=== PATIENT | male | born 1965 | race Caucasian/White ===

== ENCOUNTER 2024-06-16 12:59 | Observation (INO) | payer SELFPAY ==
[2024-06-16] VITALS (8 sets, daily range): BP systolic 97–125; BP diastolic 53–86; PULSE 65–80; RESP 16–19; TEMP 36.8–37; O2SAT 96–100; BMI 21.1
[2024-06-16 13:31] LABS: Basophils % 0.1 %; Hematocrit 39.9 % (37-53); Lymphocytes # 0.6 10^3/uL (0.8-4.8); Lymphocytes % 4.3 %; Mean Corpuscular HGB Conc 33.6 g/dL (30-55); Mean Corpuscular Volume 89.5 fl (82-101); Mean Platelet Volume 10.1 fL (7.4-10.4); Monocytes # 0.8 10^3/uL (0.2-0.9); Monocytes % 5.3 %; Neutrophils % 90.1 %; Nucleated Red Blood Cells % 0 %; Platelet Count 178 10^3/cmm (157-399); Red Blood Count 4.46 10^6/uL (3.85-5.65); White Blood Count 14.22 10^3/uL (3.29-11.43)
--- NOTE | 2024-06-16 13:48 | CTR_ITS ---
PROCEDURE INFORMATION: Exam: CT Abdomen And Pelvis With Contrast Exam date and time: 06/16/2024 2:58 PM Age: 59 years old Clinical indication: Abdominal pain; Additional info: Abd pain TECHNIQUE: Imaging protocol: Computed tomography of the abdomen and pelvis with contrast. Radiation optimization: All CT scans at this facility use at least one of these dose optimization techniques: automated exposure control; mA and/or kV adjustment per patient size (includes targeted exams where dose is matched to clinical indication); or iterative reconstruction. Contrast material: OMNI 350; Contrast volume: 100 ml; Contrast route: INTRAVENOUS (IV); COMPARISON: No relevant prior studies available. RADIATION DOSE METRICS: Total DLP (mGy-cm): 336.76 FINDINGS: Liver: Normal. No mass. Gallbladder and biliary ducts: See Urinary bladder finding. Pancreas: Normal. No ductal dilation. Spleen: Normal. No splenomegaly. Adrenal glands: Normal. No mass. Kidneys and ureters: Normal. No hydronephrosis. Stomach and bowel: Unremarkable. No obstruction. No mucosal thickening. Calcifications medial to the gallbladder are probably within the descending limb of the duodenum. Appendix: No evidence of appendicitis. Intraperitoneal space: Unremarkable. No free air. No significant fluid collection. Vasculature: Unremarkable. No abdominal aortic aneurysm. Lymph nodes: Unremarkable. No enlarged lymph nodes. Urinary bladder: Thickened urinary bladder wall with trabeculations suggesting chronic outlet obstruction. Reproductive: Unremarkable as visualized. Bones/joints: Unremarkable. No acute fracture. Soft tissues: Unremarkable. CT/CT abdomen pelvis w con* [id number] IMPRESSION: Likely chronic bladder outlet obstruction.
[2024-06-16 13:53] LABS: Alanine Aminotransferase 23 U/L (0-41); Albumin Level 4.1 g/dL (3.5-5.2); Alkaline Phosphatase 87 U/L (40-130); Anion Gap 15.4 (5-19); Aspartate Amino Transferase 30 U/L (0-40); Blood Urea Nitrogen 15 mg/dL (8-23); Calcium 9.4 mg/dL (8.5-10.5); Carbon Dioxide 24 mmol/L (22-29); Chloride 97 mmol/L (98-107); Creatinine Clr Calc Pharmacy 100.5588; Globulin 2.9 g/dL (1.3-4.6); Glomerular Filtration Rate 114.6 mL/min (90-130); Glucose 127 mg/dL (65-115); Lipase 20 U/L (13-60); Osmolality Calculated 276 mOsm/kg (285-295); Potassium 4.4 mmol/L (3.5-5.1); Sodium 132 mmol/L (136-145)
--- NOTE | 2024-06-16 14:10 | ED_ITS ---
HPI - Abdominal Pain 2 General: Chief Complaint: Abdominal Pain Stated Complaint: abdominal pain right side Time Seen by Provider: 06/16/24 13:47 Source: patient Mode of arrival: ambulatory Limitations: no limitations History of Present Illness: 59-year-old male states been having abdo eric pain since last night states it is worsened today's in his right lower quadrant rates his pain 8 out of 10 worse with movement he states he had some nausea and vomiting as well denies any dysuria denies any fever denies any diarrhea. Associated Symptoms: Reports nausea and vomiting; Denies chills, diarrhea, dysuria and fever(s) Related Data Home Medications Medication Instructions Recorded Confirmed No Known Home Medications 06/16/24 06/16/24 Allergies Allergy/AdvReac Type Severity Reaction Status Date / Time No Known Allergies Allergy Verified 06/16/24 13:21 Review of Systems 2 Const: Denies: fever(s), chills, body aches or change in appetite ENMT: Denies: throat pain or dental pain Card: Denies: chest pain Resp: Denies: dyspnea GI: Reports: abdominal pain, nausea and vomiting; Denies: diarrhea : Denies: dysuria Musc: Denies: neck pain or back pain Skin/Breast: Denies: rash Neuro: Denies: headache(s) Physical Exam 2 Const: COMMON NORMALS: no acute distress, patient oriented x3 and healthy appearing HENMT: COMMON NORMALS: normocephalic and atraumatic HEAD & SCALP: n ormocephalic and atraumatic Neck/C-Spine: COMMON NORMALS: full ROM and supple Chest: COMMONS NORMALS: normal inspection of the chest Resp: COMMON NORMALS: normal respiratory effort Cardio: COMMON NORMALS: regular rate RATE: regular rate GI: COMMON NORMALS: Normal to inspection, nondistended, normoactive bowel sounds present, Soft to palpation and no masses PALPATION: Yes Soft to palpation and Yes Tenderness to palpation present (GI) Details: RLQ Extremity: COMMON NORMALS: normal to inspection and full ROM Neuro: COMMON NORMALS: patient oriented x3, moves all extremities and no focal motor deficits Psych: COMMON NORMALS: mental status grossly normal, Normal thought process present and cooperative THOUGHT PROCESS: Normal thought process present Skin: COMMON NORMALS: no rashes or lesions noted and no wounds GENERAL SKIN EXAM: no rashes or lesions noted Course 2 Vital Signs: Vital signs: Vital Signs Temperature 98.2 F 06/16/24 13:22 Pulse Rate 80 06/16/24 15:30 Respiratory Rate 17 06/16/24 15:00 Blood Pressure 113/65 06/16/24 15:30 Pulse Oximetry 99 06/16/24 15:30 Oxygen Delivery Me thod Room Air 06/16/24 15:30 MDM - Abdominal Pain Medical Decision Making Patient presents with right lower quadrant pain CT shows likely appendicitis I spoke to his surgeon on-call will admit on IV antibiotics at this time. Medical Records I reviewed the patient's medical records. Lab Data I reviewed the patient's lab results. 06/16/24 13:18 06/16/24 13:18 Labs/Radiology: Radiology Impressions Abdomen/Pelvis CT 06/16/24 13:48 IMPRESSION: Likely chronic bladder outlet obstruction. Laboratory Results WBC 14.22 10^3/uL (3.29-11.43) H 06/16/24 13:18 RBC 4.46 10^6/uL (3.85-5.65) 06/16/24 13:18 Hgb 13.40 g/dL (11.27-16.99) 06/16/24 13:18 Hct 39.9 % (37-53) 06/16/24 13:18 MCV 89.5 fl (82-101) 06/16/24 13:18 MCH 30.0 pg (27-33) 06/16/24 13:18 MCHC 33.6 g/dL (30-55) 06/16/24 13:18 RDW 13.0 % (12.1-15.1) 06/16/24 13:18 Plt Count 178 10^3/cmm (157-399) 06/16/24 13:18 MPV 10.1 fL (7.4-10.4) 06/16/24 13:18 Neut % (Auto) 90.1 % 06/16/24 13:18 Lymph % (Auto) 4.3 % 06/16/24 13:18 [place] % (Auto) 5.3 % 06/16/24 13:18 Eos % (Auto) 0.0 % 06/16/24 13:18 Baso % (Auto) 0.1 % 06/16/24 13:18 Neut # (Auto) 12.80 10^3/uL (1.8-7.7) H 06/16/24 13:18 Lymph # (Auto) 0.6 10^3/uL (0.8-4.8) L 06/16/24 13:18 [place] # (Auto) 0.8 10^3/uL (0.2-0.9) 06/16/24 13:18 Eos # (Auto) 0.0 10^3/uL (0.0-0.8) 06/16/24 13:18 Baso # (Auto) 0.0 10^3/uL (0.0-0.1) 06/16/24 13:18 Nucleated RBC % (auto) 0 % 06/16/24 13:18 Nucleated RBCs # 0.0 /100WBC 06/16/24 13:18 Sodium 132 mmol/L (136-145) L 06/16/24 13:18 Potassium 4.4 mmol/L (3.5-5.1) 06/16/24 13:18 Chloride 97 mmol/L (98-107) L 06/16/24 13:18 Carbon Dioxide 24 mmol/L (22-29) 06/16/24 13:18 Anion Gap 15.4 (5-19) 06/16/24 13:18 BUN 15 mg/dL (8-23) 06/16/24 13:18 Creatinine 0.7 mg/dL (0.7-1.2) 06/16/24 13:18 GFR Calculation 114.6 mL/min (90-130) 06/16/24 13:18 Glucose 127 mg/dL (65-115) H 06/16/24 13:18 Calculated Osmolality 276 mOsm/kg (285-295) L 06/16/24 13:18 Lactic Acid 1.6 mmol/L (0.5-2.2) 06/16/24 13:18 Calcium 9.4 mg/dL (8.5-10.5) 06/16/24 13:18 Total Bilirubin 1.0 mg/dL (0.15-1.2) 06/16/24 13:18 AST 30 U/L (0-40) 06/16/24 13:18 ALT 23 U/L (0-41) 06/16/24 13:18 Alkaline Phosphatase 87 U/L (40-130) 06/16/24 13:18 Total Protein 7.0 g/dL (6.6-8.7) 06/16/24 13:18 Albumin 4.1 g/dL (3.5-5.2) 06/16/24 13:18 Globulin 2.9 g/dL (1.3-4.6) 06/16/24 13:18 Lipase 20 U/L (13-60) 06/16/24 13:18 Urine Color Yellow (Yellow) 06/16/24 14:00 Urine Appearance Cloudy (CLEAR) A 06/16/24 14:00 Urine pH 5.5 (5-7) 06/16/24 14:00 Ur Specific [place] 1.035 (1.005-1.030) H 06/16/24 14:00 Urine Protein 1+ (Negative) A 06/16/24 14:00 Urine Glucose (UA) Negative (Normal) 06/16/24 14:00 Urine Ketones 1+ (Negative) H 06/16/24 14:00 Urine Blood Negative (Negative) 06/16/24 14:00 Urine Nitrate Negative (Negative) 06/16/24 14:00 Urine Bilirubin Negative (Negative) 06/16/24 14:00 Urine Urobilinogen 1.0 mg/dL (Negative) 06/16/24 14:00 Ur Leukocyte Esterase Negative (Negative) 06/16/24 14:00 Urine RBC 0-2 /hpf (0-2) 06/16/24 14:00 Urine WBC 11-20 /hpf (0-5) H 06/16/24 14:00 Ur Squamous Epith Cells 0-5 /hpf (0-5) 06/16/24 14:00 Amorphous Sediment Not Reportable 06/16/24 14:00 Urine Bacteria None seen /hpf (NONE) 06/16/24 14:00 Hyaline Casts 3.71 /lpf 06/16/24 14:00 Urine Mucus 2+ /hpf 06/16/24 14:00 Urine Sperm 4+ /hpf 06/16/24 14:00 All radiology interpretation(s) finalized by discharge Discharge Plan Discharge Patient Disposition: Admitted As Inpatient Clinical Impression: Acute appendicitis Condition: Stable Prescriptions: No Action No Known Home Medications Patient Instructions: Appendicitis (GEN) Coding Level of Care Code ED Auto Customize Painter for Lindsay Thayer
[2024-06-16 14:33] LABS: Bilirubin Urine Negative (Negative); Blood Urine Negative (Negative); Glucose Urine UA Negative (Normal); Ketones Urine 1+ (Negative); Leukocyte Esterase Urine Negative (Negative); Nitrate Urine Negative (Negative); Protein Urine 1+ (Negative); Urine Appearance Cloudy (CLEAR); Urine Color Yellow (Yellow); pH Urine 5.5 (5-7)
[2024-06-16 14:35] LABS: Add Urine Microscopic? YES; Bacteria Urine None Seen /hpf; Hyaline Casts Urine 3.71 /lpf; RBC Urine 0-2 /hpf (0-2); Squamous Epithelial Cell Urine 0-5 /hpf (0-5)
[2024-06-16 14:47] LABS: Specific Gravity, Urine 1.035 (1.005-1.030); UA Slide Review UA Slide Review Perf
[2024-06-16 14:48] LABS: Sperm Urine 4+ /hpf
[2024-06-16 14:49] LABS: Mucus Urine 2+ /hpf
[2024-06-16] MEDS: iohexol 350 mg/mL 500 mL Btl (per mL) IV (15:00)
--- NOTE | 2024-06-16 15:12 | PC.NURSE ---
pt refused meds at this time, Dr. Leal aware.
[2024-06-16 15:44] LABS: Lactic Sepsis W/Reflex 1.6 mmol/L (0.5-2.2)
[2024-06-16] MEDS: piperacillin-tazobactam 3.375 GM in sodium chloride 0.9% (plus) 50 ML IV ×2 (16:06→23:57)
[2024-06-17] VITALS (15 sets, daily range): BP systolic 91–109; BP diastolic 43–66; PULSE 60–82; RESP 12–18; TEMP 36.6–37.7; O2SAT 96–100
[2024-06-17] MEDS: piperacillin-tazobactam 3.375 GM in sodium chloride 0.9% (plus) 50 ML IV ×2 (08:25→22:23)
--- NOTE | 2024-06-17 09:29 | PC.CHAP ---
Pastoral Care Encounter/Spiritual Assessment Type of Contact [] Declined beam doffer visit [] Patient/Family/Request visit [] Outpatient visit [] Follow-up visit [] Physician referral [] Code/Alert [x] Routine visit [] Staff referral [] Actively dying [] Patient sleeping [] Family support [] [] Out of room [] Palliative care [] [] Receiving care in room [] Pre-surgical visit [] Trauma [] Long length of stay [] ICU visit [] Other: Relational/Emotional Strength [x] Patient feels connected with others/family/visitors/staff [] Distress [] Loneliness/isolation [] Abandonment Spirituality of Patient [x] Person of Carrie [] Attends Moravian of their Carrie [x] Believes in Prayer [] Reads Bible or Anglican materials [] There are Spiritual issues to be addressed Product Safety Expert Interventions [x] Prayer [x] Active listening [] Non-anxious presence [x] Spiritual/emotional support [] Crisis/trauma care [] Spiritual counseling [] Bereavement support [] Provided bereavement packet [] Provided Bible/devotional materials [] Provided toy/stuffed animal, coloring book to patient or family member [] Provided Communion [] Anointing/[place] [] Salvation [x] Completed spiritual assessment [] Other: Impact on Illness or Injury [] Angry [] Fearful [] Anxious [] Often cries [] Exhaustion [] Unable to work [] Unable to attend pentecostalism [] Unable to walk/stand [] Unable to read [] Unable to drive [] Unable to eat/drink [] Unable to sleep [] Unable to be with family [] Patient intubated [] Other: Summary Time spent with patient 5 min
--- NOTE | 2024-06-17 16:54 | P.HP_ITS ---
Providers/Chief Complaint 2 Admitting Physician: Yahir Erickson DO Chief Complaint: abdominal pain right side History of Present Illness David Blanchard is a 59 year old male who presented to hospital with 1 day history of right lower quadrant abdominal pain. Palpation and movement make the pain worse. Not seems to make the pain better. The pain radiates to his back. He denies any nausea, emesis, diarrhea, constipation, hematochezia and/or melena. CT of the abdomen pelvis shows acute appendicitis and chronic bladder outlet obstruction Review of Systems 2 General: Reports: 10 or more systems reviewed and unremarkable except in HPI and below Medications/Allergies Home Medications Medication Instructions Recorded Confirmed Last Taken Type No Known Home Medications 06/16/24 06/16/24 Unknown History Allergies Allergy/AdvReac Type Severity Reaction Status Date / Time No Known Allergies Allergy Verified 06/16/24 13:21 Vitals/I&O/Wt Last Vital Signs Temp 99.6 F 06/17/24 16:49 Pulse 67 06/17/24 16:49 Resp 17 06/17/24 16:49 BP 96/53 06/17/24 16:49 Pulse Ox 96 06/17/24 16:49 O2 Del Method Room Air 06/17/24 16:49 06/17/24 06/17/24 06/17/24 06:59 14:59 22:59 Intake Total 750 / 1040 50 / 50 Output Total 2000 / 3400 400 / 400 Balance -1250 / -2360 -350 / -350 Weight last 48 hrs Weight 135 lb Weight 135 lb Physical Exam 2 Narrative: General : Patient is well developed , no acute distress, oriented x3 Head : Normal cephalic, a-traumatic. Ears : Pinnae and external canal are normal. Hearing is normal. Eyes : PERRLA, Sclera and injection are normal. No conjunctival discharge. Nose : Mucous membranes are without erythema. Throat : buccal mucosa is normal, gums are without significant recession or hypertrophy. Lungs : Equal chest rise bilaterally, no use of accessory muscles, trachea is midline. Cor : Rate and rhythm are normal. Abdomen : Soft, ND, tender right lower quadrant, negative Rovsing's, no g/r/m Extremities : No edema, no cyanosis or clubbing, dorsalis pedis pulses are present bilaterally, non-tender to palpation of calves. Upper extremities are normal bilaterally. Back : non-tender to palpation, no CVA tenderness. Neuro : CN II - XII intact, Upper and lower extremities have equal and full strength Urinary Catheter Management: Abraham: Cath Placed During This Visit: yes Reason for Continuing Indwelling Catheter: Acute Urinary Retention or Obstruction Urinary Catheter Date of Insertion: 06/16/24 Data 06/16/24 13:18 06/16/24 13:18 Micro: Microbiology 06/16/24 15:48 Blood Culture - Preliminary Blood NEGATIVE TO DATE 06/16/24 15:43 Blood Culture - Preliminary Blood NEGATIVE TO DATE A&P Assessment and plan (1) Acute appendicitis: (2) Bladder outlet obstruction: Plan Pain control IV antibiotics Complete catheter placement Laparoscopic Appendectomy The risks and benefits of the procedure, including but not limited to, bleeding, infection, scar, numbness, pain, damage to surrounding structures, conversion to an open procedure, were explained to the patient. He is understanding of the risks and wishes to proceed. Attestations 2 Medical Necessity Statement*: Patient may require 1 or more nights in the hospital depending on intraoperative findings during appendectomy Coding Level of Care Code 05530 Diagnoses Acute appendicitis K35.80 Bladder outlet obstruction N32.0
--- NOTE | 2024-06-17 16:54 | PC.NURSE ---
pt to or at approx [id number]
--- NOTE | 2024-06-17 16:55 | ANES.PREANE2 ---
Pre-Anesthetic Assessment Height/Weight: Height 5 ft 7 in Weight 135 lb Temp Pulse Resp BP Pulse Ox O2 Del Method 99.6 F 67 17 96/53 96 Room Air 06/17/24 16:49 06/17/24 16:49 06/17/24 16:49 06/17/24 16:49 06/17/24 16:49 06/17/24 16:49 Preop Diagnosis: Acute appendicitis Operation Date: 06/17/24 13:10 Proposed Procedures p Laparoscopic Appendectomy(Not Applicable) - Yahir Erickson, DO Was Beta Juliocesar taken within 24 hours: N/A Was Clonidine taken within 24 hours: N/A Last intake: Intake Last Liquid Date 06/17/24 Last Liquid Time 00:00 Last Solid Date 06/16/24 Last Solid Time 21:00 Social No alcohol and No tobacco Exam alert, oriented x 3, clear to auscultation bilaterally and regular rate & rhythm Airway Submandibular: within normal limits Cervical ROM: within normal limits Mallampati: Class II Dentition: full Anesthetic Plan ASA status: 2 Anesthesia: General Other: Acute appendicitis, WBC 14.2 No prior anesthetic history NPO since yesterday Denies any cardiac or pulmonary issues Labs reviewed and acceptable for procedure METs greater than 4 Plan for GETA Medications/Allergies Home Medications Medication Instructions Recorded Confirmed Last Taken Type No Known Home Medications 06/16/24 06/16/24 Unknown History Allergies Allergy/AdvReac Type Severity Reaction Status Date / Time No Known Allergies Allergy Verified 06/16/24 13:21 Data Anesthesia 06/16/24 13:18 06/16/24 13:18 Short CBC 06/16/24 Range/Units 13:18 WBC 14.22 H (3.29-11.43) 10^3/uL Hgb 13.40 (11.27-16.99) g/dL Hct 39.9 (37-53) % MCV 89.5 (82-101) fl Plt Count 178 (157-399) 10^3/cmm Neut % (Auto) 90.1 % Neut # (Auto) 12.80 H (1.8-7.7) 10^3/uL BMP 06/16/24 13:18 Sodium 132 L Potassium 4.4 Chloride 97 L Carbon Dioxide 24 BUN 15 Creatinine 0.7 Glucose 127 H Calcium 9.4 Liver Function 06/16/24 Range/Units 13:18 Total Bilirubin 1.0 (0.15-1.2) mg/dL AST 30 (0-40) U/L ALT 23 (0-41) U/L Alkaline Phosphatase 87 (40-130) U/L Albumin 4.1 (3.5-5.2) g/dL Urine 06/16/24 Range/Units 14:00 Urine Color Yellow (Yellow) Urine Appearance Cloudy A (CLEAR) Urine pH 5.5 (5-7) Ur Specific [place] 1.035 H (1.005-1.030) Urine Protein 1+ A (Negative) Urine Glucose (UA) Negative (Normal) Urine Ketones 1+ H (Negative) Urine Nitrate Negative (Negative) Urine Bilirubin Negative (Negative) Ur Leukocyte Esterase Negative (Negative) Urine RBC 0-2 (0-2) /hpf Urine WBC 11-20 H (0-5) /hpf Microbiology 06/16/24 15:48 Blood Culture - Preliminary Blood NEGATIVE TO DATE 06/16/24 15:43 Blood Culture - Preliminary Blood NEGATIVE TO DATE Cardiac Studies: No Data to Display
[2024-06-17] MEDS: lidocaine-epi 2% PF 1:200,000 20 mL SDV XX (17:35)
--- NOTE | 2024-06-17 17:49 | P.OP_ITS ---
Operative Report Date of procedure: June 17, 2024 Pre-op diagnosis: Acute appendicitis Post-op diagnosis: same Procedure done: Laparoscopic appendectomy Implants: None Specimens removed/disposition: appendix Surgeon: Yahir Erickson DO Anesthesia: General and Local Estimated blood loss (mL): 5 Complications: None apparent Brief History: This is a very pleasant 59-year-old gentleman with acute appendicitis. Laparoscopic appendectomy was indicated. Risks and benefits were explained and documented. Procedure: Patient was wheeled into the operative room and placed on the OR table in a supine position. Abdomen was inspected prepped and draped in usual sterile fashion. Time-out was performed and all present were in agreement. A 15 blade scalp was used to make a stab incision in the left upper quadrant and intra- abdominal insufflation was achieved using a Veress needle. After localizing the tissue incisions were made and a 12 millimeter trocar was placed into the umbilicus as well as a 5mm in the right lower quadrant and a 5 mm in the left lower quadrant. The appendix was identified and was mildly inflamed. I used the laparoscopic ligature to ligate the mesoappendix at the base. I then used 2 PDS endo-loops to snare the base of the appendix. I then used the laparoscopic ligature to ligate the appendix distally. The appendix was removed from the abdomen using an Endo-Catch bag through the umbilical incision. I examined the abdomen and no further pathology was identified. Hemostasis was noted. I then closed the umbilical site with a Brayan-Max and 0 Vicryl suture in a figure of 8 fashion. All ports removed. Skin was washed and dried. Incisions were closed with 4 O Vicryl in a subcuticular interrupted fashion. Skin glue was applied. Patient tolerated the procedure well.
--- NOTE | 2024-06-17 18:30 | ANE.PACU2 ---
Inpatient post-anesthesia follow up: Airway intact: Yes Vital signs: Temperature 97.9 F Pulse Rate 54 Respiratory Rate 16 Blood Pressure 97/55 Pulse Oximetry 99 Oxygen Delivery Me thod Room Air Oxygen Flow Rate 10 Fraction of Inspir ed Oxygen Hydration adequate: Yes Nausea and vomiting: No Pain level: 1 Mental status: Baseline
--- NOTE | 2024-06-17 19:14 | PC.NURSE ---
pts alva cath removed in the or during surgery, dr. kiser gave verbal order to this nurse to reinsert alva cath if pt had not voided on his own be 06/18/24 @ 0200
[2024-06-18] VITALS (7 sets, daily range): BP systolic 80–118; BP diastolic 55–67; PULSE 50–78; RESP 15–17; TEMP 36.3–36.6; O2SAT 96–100
[2024-06-18] MEDS: HYDROcodone-acetaminophen 7.5-325 mg Tablet 1 TAB PO ×2 (01:47→11:32)
--- NOTE | 2024-06-18 02:42 | PC.NURSE ---
Alva placement refusal: Pt admitted Saturday afternoon and abd CT showed a bladder outlet obstruction. Pt endorsed difficulty with urination for the past 5 years. After surgery on Saturday his alva was removed. Later that evening this nurse was giving pain medication around 0145 asked pt if he had voided since his alva had been removed and he stated that he did about an hour prior. Asked if he felt that he emptied his bladder completely and he said no . Advised him that we would bladder scan him and if he was retaining urine that we had an order to replace his alva and he would discharge with it. Pt stated I'll pull it out when I get home, I am not going to walk around with a alva. I wouldn't mind going to a urologist but I am going to look for natural remedies first. Educated the patient on the risk of infection with urinary retention, he stated he understood and still did not want the alva replaced. His patient care nurse was informed of his decision.
--- NOTE | 2024-06-18 05:26 | PC.NURSE ---
Addendum entered by Rosemary Hernandez RN 06/18/24 05:27: Patient is asymptomatic. Original Note: Dr. Erickson notified of blood pressure running 80s/50s. 500 ml LR bolus ordered.
[2024-06-18] MEDS: lactated ringers 500 ML 999 ML IV (05:37)
[2024-06-18] MEDS: piperacillin-tazobactam 3.375 GM in sodium chloride 0.9% (plus) 50 ML IV (06:11)
--- NOTE | 2024-06-18 10:40 | P.DS_ITS ---
Discharge Providers Date of Admission: 06/16/24 17:35 Date of Discharge: June 18, 2024 Attending Provider at Admission: Yahir Erickson DO Attending Provider at Discharge: Yahir Erickson DO Diagnoses at Discharge Discharge Diagnosis (1) Acute appendicitis: Status: Acute (2) Bladder outlet obstruction: Status: Acute Reason for Visit Reason for Visit: abdominal pain right side Hospital Course Hospital Course This is a very pleasant 59-year-old gentleman who presented to the hospital with abdominal pain. He was diagnosed with acute appendicitis. He underwent laparoscopic appendectomy and was discharged home in good condition the next day Physical Exam Narrative: General : Patient is well developed , no acute distress, oriented x3 Head : Normal cephalic, a-traumatic. Ears : Pinnae and external canal are normal. Hearing is normal. Eyes : PERRLA, Sclera and injection are normal. No conjunctival discharge. Nose : Mucous membranes are without erythema. Throat : buccal mucosa is normal, gums are without significant recession or hypertrophy. Lungs : Equal chest rise bilaterally, no use of accessory muscles, trachea is midline. Cor : Rate and rhythm are normal. Abdomen : Soft, ND, appropriately tender , no g/r/m Extremities : No edema, no cyanosis or clubbing, dorsalis pedis pulses are present bilaterally, non-tender to palpation of calves. Upper extremities are normal bilaterally. Back : non-tender to palpation, no CVA tenderness. Neuro : CN II - XII intact, Upper and lower extremities have equal and full strength Urinary Catheter Management: Abraham: Cath Placed During This Visit: yes, but has since been removed by the nurse Reason for Continuing Indwelling Catheter: Acute Urinary Retention or Obstruction Urinary Catheter Date of Insertion: 06/16/24 Date Urinary Catheter Removed: 06/17/24 Time Urinary Catheter Discontinued: 17:34 Discharge Data Studies Completed and Pending Completed Studies During Hospitalization Category Date Time Status CT abdomen pelvis w con* [id number] Stat Cat Scan 06/16/24 13:48 Completed Pending at discharge Category Date Time Status Blood Culture Stat Lab 06/16/24 15:48 Results Pathology: Surgical [PTH] Routine Pth 06/17/24 17:46 Received Radiology Impressions Abdomen/Pelvis CT 06/16/24 13:48 IMPRESSION: Likely chronic bladder outlet obstruction. Laboratory Results WBC 14.22 10^3/uL (3.29-11.43) H 06/16/24 13:18 RBC 4.46 10^6/uL (3.85-5.65) 06/16/24 13:18 Hgb 13.40 g/dL (11.27-16.99) 06/16/24 13:18 Hct 39.9 % (37-53) 06/16/24 13:18 MCV 89.5 fl (82-101) 06/16/24 13:18 MCH 30.0 pg (27-33) 06/16/24 13:18 MCHC 33.6 g/dL (30-55) 06/16/24 13:18 RDW 13.0 % (12.1-15.1) 06/16/24 13:18 Plt Count 178 10^3/cmm (157-399) 06/16/24 13:18 MPV 10.1 fL (7.4-10.4) 06/16/24 13:18 Neut % (Auto) 90.1 % 06/16/24 13:18 Lymph % (Auto) 4.3 % 06/16/24 13:18 Beckham % (Auto) 5.3 % 06/16/24 13:18 Eos % (Auto) 0.0 % 06/16/24 13:18 Baso % (Auto) 0.1 % 06/16/24 13:18 Neut # (Auto) 12.80 10^3/uL (1.8-7.7) H 06/16/24 13:18 Lymph # (Auto) 0.6 10^3/uL (0.8-4.8) L 06/16/24 13:18 Beckham # (Auto) 0.8 10^3/uL (0.2-0.9) 06/16/24 13:18 Eos # (Auto) 0.0 10^3/uL (0.0-0.8) 06/16/24 13:18 Baso # (Auto) 0.0 10^3/uL (0.0-0.1) 06/16/24 13:18 Nucleated RBC % (auto) 0 % 06/16/24 13:18 Nucleated RBCs # 0.0 /100WBC 06/16/24 13:18 Sodium 132 mmol/L (136-145) L 06/16/24 13:18 Potassium 4.4 mmol/L (3.5-5.1) 06/16/24 13:18 Chloride 97 mmol/L (98-107) L 06/16/24 13:18 Carbon Dioxide 24 mmol/L (22-29) 06/16/24 13:18 Anion Gap 15.4 (5-19) 06/16/24 13:18 BUN 15 mg/dL (8-23) 06/16/24 13:18 Creatinine 0.7 mg/dL (0.7-1.2) 06/16/24 13:18 GFR Calculation 114.6 mL/min (90-130) 06/16/24 13:18 Glucose 127 mg/dL (65-115) H 06/16/24 13:18 Calculated Osmolality 276 mOsm/kg (285-295) L 06/16/24 13:18 Lactic Acid 1.6 mmol/L (0.5-2.2) 06/16/24 13:18 Calcium 9.4 mg/dL (8.5-10.5) 06/16/24 13:18 Total Bilirubin 1.0 mg/dL (0.15-1.2) 06/16/24 13:18 AST 30 U/L (0-40) 06/16/24 13:18 ALT 23 U/L (0-41) 06/16/24 13:18 Alkaline Phosphatase 87 U/L (40-130) 06/16/24 13:18 Total Protein 7.0 g/dL (6.6-8.7) 06/16/24 13:18 Albumin 4.1 g/dL (3.5-5.2) 06/16/24 13:18 Globulin 2.9 g/dL (1.3-4.6) 06/16/24 13:18 Lipase 20 U/L (13-60) 06/16/24 13:18 Urine Color Yellow (Yellow) 06/16/24 14:00 Urine Appearance Cloudy (CLEAR) A 06/16/24 14:00 Urine pH 5.5 (5-7) 06/16/24 14:00 Ur Specific [place] 1.035 (1.005-1.030) H 06/16/24 14:00 Urine Protein 1+ (Negative) A 06/16/24 14:00 Urine Glucose (UA) Negative (Normal) 06/16/24 14:00 Urine Ketones 1+ (Negative) H 06/16/24 14:00 Urine Blood Negative (Negative) 06/16/24 14:00 Urine Nitrate Negative (Negative) 06/16/24 14:00 Urine Bilirubin Negative (Negative) 06/16/24 14:00 Urine Urobilinogen 1.0 mg/dL (Negative) 06/16/24 14:00 Ur Leukocyte Esterase Negative (Negative) 06/16/24 14:00 Urine RBC 0-2 /hpf (0-2) 06/16/24 14:00 Urine WBC 11-20 /hpf (0-5) H 06/16/24 14:00 Ur Squamous Epith Cells 0-5 /hpf (0-5) 06/16/24 14:00 Amorphous Sediment Not Reportable 06/16/24 14:00 Urine Bacteria None seen /hpf (NONE) 06/16/24 14:00 Hyaline Casts 3.71 /lpf 06/16/24 14:00 Urine Mucus 2+ /hpf 06/16/24 14:00 Urine Sperm 4+ /hpf 06/16/24 14:00 Procedures Performed Laparoscopic appendectomy Vitals Last Vital Signs Temp 97.7 F 06/18/24 07:16 Pulse 50 L 06/18/24 07:16 Resp 16 06/18/24 04:00 BP 93/56 06/18/24 07:16 Pulse Ox 100 06/18/24 07:16 O2 Del Method Room Air 06/18/24 07:16 O2 Flow Rate 10 06/17/24 18:05 Discharge Plan Discharge Patient Disposition: Home Condition: Stable Prescriptions: New hydrocodone-acetaminophen 7.5-325 mg tablet 1 tab PO Q6H PRN (Reason: pain) Qty: 20 0RF docusate sodium [Colace] 100 mg capsule 100 mg PO BID Qty: 14 0RF polyethylene glycol 3350 [Miralax] 17 gram/dose powder 17 g PO DAILY 7 Days Qty: 119 0RF amoxicillin-pot clavulanate 875-125 mg tablet 1 tab PO BID Qty: 14 0RF Discharge Orders: Discharge Order (Routine); Ordered 06/18/24 Ordered By: Yahir Erickson Referrals: Yahir Erickson DO [Physician] - 2 weeks Discharge Diet: Advance as tolerated Discharge Activity: Resume usual activity Patient Instructions: Appendicitis (GEN), Acute Wound Care (DC), Opioid Safety, Post Anesthesia Care Activity Restrictions/Additional Instructions: Do not soak incisions underwater for 2 weeks. Shower regularly. Discharge Attestations Time Spent in Discharge Care*: less than 30 min Quality Metrics Clinical Quality Measures [ No reported AMI, CVA or VTE this stay] Coding Level of Care Code Acute Code for Chg Fwd Diagnoses Acute appendicitis K35.80 Bladder outlet obstruction N32.0
== END 2024-06-18 13:15 | disposition home or self-care (01) ==
LOC: ER 15:59 → MEDSURG 17:36
PROVIDERS: Admitting Provider Surgery; Emergency Provider Emergency Medicine; Visit Provider Surgery
PROC: 0DTJ4ZZ Resection of Appendix, Percutaneous Endoscopic Approach (ICD-10-PCS; CPT 44970; principal; 2024-06-17 13:00)
DX: K35.80 Unspecified acute appendicitis (principal); N32.0 Bladder-neck obstruction
CPT/HCPCS: 44970; 36415; 51702; 74177; 80053; 81001; 83605; 83690; 85025; 87040; 88304; 96365; 96367; 99285; G0378; J1100; J1885; J2405; J2543; J2704; J3010; J3490; J7120